=== PATIENT | female | born 1965 | race Caucasian/White ===

== ENCOUNTER 2017-10-23 07:57 | Outpatient (CLI) | payer MEDICAID ==
[~2017-10-23] VITALS: Ht 147.3 cm; Wt 80.0 kg
--- NOTE | ~2017-10-23 | HEMODYNAMI ---
PATIENT:CHUNG RASMUSSEN MEDICAL RECORD: [id number] : 67 LOCATION:[facility] ADMISSION DATE: 10/23/17 Generatedon:10/23/201710:19 Patient name: CHUNG RASMUSSEN Patient #: [id number] SSN: : 1965 Date of study: 10/23/2017 Page: Of Hemodynamic Procedure Report Patient Data Patient Demographics Procedure consent was obtained First Name: CHUNG Gender: Female Last Name: VALERY : 1965 Middle Initial: JUAN FRANCISCO Age: 52 year(s) Patient #: [id number] Race: Unknown Additional ID: [id number] Contact details [address]: [address] [place] [address] State: [place] City: [place] Zip code: [address] Admission Admission Data Admission Date: 10/23/2017 Admission Time: 7:57 Weight (lbs.): 178 Weight (kg.): 80.74 Procedure Procedure Types Cath Procedure Diagnostic Procedure PPM/ICD Loop Recorder Implant Miscellaneous Procedures Moderate Sedation up to 15 minutes Procedure Description Procedure Date Procedure Date: 10/23/2017 Procedure Start Time: 10:05 Procedure End Time: 10:16 Procedure Staff Name Function Lorenzo Alberts MD Performing Physician Laya Baires RT Monitor Kalli Lopez RT Scrub Stefany Prater RN Nurse Procedure Data Procedure Complications No complications Procedure Medications Medication Administration Route Dosage Versed I.V. 2 mg Fentanyl I.V. 100 mcg Fentanyl I.V. 50 mcg Versed I.V. 2 mg Hemodynamics Rest Heart Rate: 80 (bpm) Snapshots Pre Cath Intra NCS Post Cath Vital Signs Time Heart Resp SPO2 etCO2 NIBP (mmHg) Rhythm Pain Sedation Rate (ipm) (%) (mmHg) Status Level (bpm) 10:01:09 82 16 98 0 146/87(127) NSR 0 (11) 10(A) , No pain 10:05:29 82 15 96 0 138/88(122) NSR 0 (11) 10(A) , No pain 10:09:35 78 16 97 0 129/92(113) NSR 0 (11) 9(A) , No pain 10:13:45 72 16 98 0 147/98(117) NSR 0 (11) 10(A) , No pain Medications Time Medication Route Dose Verified Delivered Reason Notes Effectivene ss by by 10:05:42 Versed I.V. 2 mg Lorenzo Mccall for Aristeo Prater RN sedation 10:05:50 Fentanyl I.V. 100 Lorenzo Mccall for mcg Aristeo Prater RN sedation 10:11:37 Fentanyl I.V. 50 Lorenzo Duartey for mcg Aristeo Prater RN sedation 10:12:42 Versed I.V. 2 mg Lorenzo Mccall for Aristeo Prater RN sedation Procedure Log Time Note 9:38:55 H&P Date Dictated: 10/13/2017 Within 30 days and on chart., H&P Addendum completed by physician on day of procedure. (MUST COMPLETE FOR ALL OUTPATIENTS). 9:39:32 Patient Weight : 178 lbs 9:40:00 Time tracking: Regular hours 9:40:04 Plan of Care:Hemodynamics will remain stable., Cardiac rhythm will remain stable., Comfort level will be maintained., Respiratory function will remain adequate., Patient/ family verbilizes understanding of procedure., Procedure tolerated without complication., Recovers from procedure without complications.. 9:40:05 Signed procedure consent form obtained from patient. 9:44:31 Kalli GOVEA(R) sent for patient. Start room use. 9:49:53 Patient arrived from Pre/Post Procedure Room to CCL 2. Patient remains on bed/stretcher for procedure. 9:49:54 Warm blankets applied, and eliezer hugger turned on for patient comfort. 9:49:55 Correct patient and procedure confirmed by team. 9:49:56 ECG and BP/O2 sat monitors applied to patient. 9:58:57 Vital chart was started 10:02:55 Baseline sample Acquired. 10:02:59 Rhythm: sinus rhythm 10:03:00 Full Disclosure recording started 10:03:01 Pre-procedure instructions explained to patient. 10:03:02 Pre-op teaching completed and patient verbalized understanding. 10:03:04 Family in patients room. 10:03:05 Patient NPO since Midnight. 10:03:12 Is the patient allergic to Iodine/contrast media? No. 10:03:16 Patient diabetic? No. 10:03:19 Patient not . Patient has had tubal. 10:03:22 Previous problem with sedation/anesthesia? No ? 10:03:23 Snore? Yes 10:03:24 Sleep apnea? No 10:03:27 Deviated septum? No 10:03:28 Opens mouth fully? Yes 10:03:29 Sticks out tongue? Yes 10:03:31 Airway obstruction? No ? 10:03:33 Dentures? No ? 10:03:36 IV patent on arrival in left forearm with 0.9% NaCl at [facility]. 10:03:41 Mid Chest area was prepped with chlora-prep and draped in sterile fashion 10:03:50 Alarms reviewed by R. N. 10:03:51 Sharps counted by scrub and verified by R.N. 10:03:52 --------ALL STOP TIME OUT------ 10:03:52 Final Timeout: patient, procedure, and site verified with staff and physician. All members of the team are in agreement. 10:03:56 Mid Chest site verified by team. 10:03:59 Physical assessment completed. ASA score P 2 - A patient with mild systemic disease as per Lorenzo Alberts MD. 10:04:02 Sedation plan: IV Moderate Sedation Medication:Versed, Fentanyl 10:04:05 Procedure started. 10:05:03 [employer] payable representative karla solomon present for procedure. 10:05:08 Lidocaine 2% was administered to mid chest by Lorenzo Alberts MD . 10:05:10 Incision made to mid chest. 10:05:34 [employer] Linq Loop Recorder opened to sterile field. 10:05:42 Versed 2 mg I.V. was administered by Stefany Prater RN; for sedation; 10:05:50 Fentanyl 100 mcg I.V. was administered by Stefany Prater RN; for sedation; 10:11:16 Linq was inserted subcutaneously to mid chest. 10:11:26 Mid Chest incision was dressed with Dermabond. 10:11:37 Fentanyl 50 mcg I.V. was administered by Stefany Prater RN; for sedation; 10:11:54 Mid cheslt incision was dressed with Dermabond and Steri Strips 10:12:42 Versed 2 mg I.V. was administered by Stefany Prater RN; for sedation; 10:13:14 Procedure ended.(Physican Out) 10:13:33 Post procedure rhythm: unchanged. 10:13:35 Post procedure instruction explained to patient.Patient verbalizes understanding. 10:13:36 Patient needs reinforcement of post procedure teaching. 10:14:40 Procedure type changed to Cath procedure, Diagnostic procedure, PPM/ICD, Loop Recorder Implant, Miscellaneous Procedures, Moderate Sedation up to 15 minutes 10:15:30 Procedure Complication : No complications 10:15:32 Vital chart was stopped 10:15:33 See physician's report for complete and final results. 10:15:35 Report given to Pre/Post Procedure Room. 10:15:38 Patient transfered to Pre/Post Procedure Room with Bed. 10:16:14 Procedure ended. 10:16:14 Full Disclosure recording stopped 10:16:20 End room use (Document Last) Device Usage Item Name Manufacture Quantity Catalog Hospital Part Current Minimal Lot# / Number Charge Number Stock Stock Serial# Code Medtronic Medtronic 1 [id number] Linq Loop Recorder Signature Audit [place] Stage Time Signature Unsigned Intra-Procedure 10/23/2017 Laya Baires 10:19:27 AM RT(R) Signatures Monitor : Laya Baires Signature : RT Date : Time : [address] [address]
--- NOTE | ~2017-10-23 | OP ---
PATIENT NAME: CHUNG RASMUSSEN MEDICAL RECORD: [id number] :67 LOCATION:[facility] ADMISSION DATE: SURGEON: ANJUM KRUEGER MD DATE OF OPERATION: 10/23/2017 PROCEDURE: LINQ placement. INDICATION: Recurrent near syncope. PROCEDURE IN DETAIL: After informed consent was obtained and after detailed explanation of risks, benefits as well as alternative therapies, the patient elected to proceed with the LINQ device placement. The chest area was prepped and draped in normal sterile fashion. The LINQ device was placed with no problems. R-wave readings were over 0.3. OVERALL IMPRESSION: Successful LINQ monitoring device placed. TRANSINT:[id number] Voice Confirmation ID: [id number] DOCUMENT ID: [id number] ANJUM KRUEGER MD at 1025 CC: [id number] DICTATION DATE: 10/23/17 1126 SHEET METAL ERECTOR: 10/23/17 1320 DEP CLI 10/23/17 [address] [id number] [place] [address]
[2017-10-23] MEDS ORDERED: MOBIC7.5 MG PO (08:22)
[2017-10-23] MEDS ORDERED: ZOLOFT50 MG PO (08:22)
[2017-10-23] MEDS ORDERED: HYDROCODON-ACE1 EAC7 PO (08:23)
[2017-10-23] MEDS ORDERED: CARTIA XT120 MG PO (08:23)
[2017-10-23] MEDS ORDERED: ZANAFLEX4 MG PO (08:23)
[2017-10-23] MEDS ORDERED: BACTRIM DS TABL1 TAB PO (08:24)
[2017-10-23] MEDS ORDERED: TEMOVATE 0.05%15 G1 TOPICAL (08:24)
[2017-10-23] MEDS ORDERED: PEPCID AC20 MG PO (08:24)
[2017-10-23] MEDS ORDERED: FLUTICASONE PRO16 GM NASAL (08:25)
[2017-10-23 08:33] VITALS: BP 124/79; Ht 147.3 cm; Wt 80.0 kg
== END 2017-10-23 11:35 | disposition home or self-care (01) ==
LOC: D.CATH 07:57
DX: I20.9 Angina pectoris, unspecified (principal); R55 Syncope and collapse; I10 Essential (primary) hypertension; Z01.812 Encounter for preprocedural laboratory examination